=== PATIENT | male | born 1985 | race Caucasian/White ===

== ENCOUNTER 2021-12-05 17:09 | Emergency (ER) | payer SELFPAY ==
[~2021-12-05] VITALS: Ht 175.3 cm; Wt 65.8 kg
--- NOTE | 2021-12-05 17:28 | NUR ---
BIBS C/O RIGHT EAR ACHE
[2021-12-05 17:29] VITALS: BP 140/76
[2021-12-05] MEDS ORDERED: IBUP-1955 PO (17:55)
--- NOTE | 2021-12-05 17:58 | NUR ---
Patient discharged to home in stable condition. Written and verbal after care instructions given. Patient verbalizes understanding of instruction.
== END 2021-12-05 17:58 | disposition home or self-care (01) ==
LOC: ER 17:30
DX: J06.9 Acute upper respiratory infection, unspecified (principal); I89.1 Lymphangitis; Z60.2 Problems related to living alone